=== PATIENT | female | born 2000 | race Hispanic/Latino ===

== ENCOUNTER 2024-01-14 22:19 | Emergency (ER) | payer BC, OTHER ==
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
--- NOTE | 2024-01-15 00:40 | EDPHYS ---
Physician Documentation [facility] Name: Bita Ortiz Age: 23 yrs Sex: Female : 2000 Arrival Date: 01/14/2024 Time: 22:19 Bed 10 Private MD: HARISH Physician Darren Soto HPI: 01/14 00:46 This 23 yrs old Female presents to ER via Ambulatory with complaints of sb4 Laceration To Finger. 00:47 The patient has a laceration related to: playing, occurred at home, and there are no sb4 complicating factors. The injury was accidental. The laceration(s) is(are) located on the palmar aspect of middle phalanx of right index finger and palmar aspect of proxima; phalanx of right index finger. Onset: The symptoms/episode began/occurred last night. Associated signs and symptoms: Pertinent negatives: deformity, dizziness, heavy bleeding, loss of consciousness, numbness distal to injury, suspected foreign body. The patient has not experienced similar symptoms in the past. The patient has not recently seen a physician. Historical: - Allergies: 01/13 22:40 No Known Allergies; kl - Home Meds: 22:40 None [Active]; kl - PMHx: 22:40 None; kl - PSHx: 22:40 None; kl - Immunization history:: Last tetanus immunization: unknown. - Infectious Disease History:: Denies. - Social history:: Smoking status: Patient denies any tobacco usage or history of. ROS: 01/14 00:47 Constitutional: Negative for fever, chills, and weight loss, sb4 Skin: Positive for laceration(s), of the palmar aspect of middle phalanx of right index finger, 00:47 All other systems are negative, sb4 Exam: 00:47 Constitutional: This is a well developed, well nourished patient who is awake, alert, sb4 and in no acute distress. Head/Face: Normocephalic, atraumatic. Eyes: Extra-ocular motions intact. Periorbital areas with no swelling, redness, or edema. ENT: Mucous membranes moist. 00:47 Skin: injury, laceration(s), the wound is approximately 2.5 cm(s), with a depth of .5 cm(s), of the palmar aspect of middle phalanx of right index finger, that can be described as no foreign body, linear, without bleeding, dried blood, Vital Signs: 01/13 22:37 BP 114 / 73; Pulse 63; Resp 16; Temp 98(TE); Pulse Ox 100% on R/A; Weight 70.31 kg (R); kl Height 5 ft. 0 in. ; Pain 0/10; 22:37 Body Mass Index 30.27 (70.31 kg, 152.4 cm) kl 22:37 Pain Scale: Adult kl MDM: 22:42 Patient medically screened. sb4 01/14 00:47 Data reviewed: vital signs, nurses notes, radiologic studies, and as a result, I will sb4 discharge patient. Counseling: I had a detailed discussion with the patient and/or guardian regarding the historical points, exam findings, and any diagnostic results supporting the discharge/admit diagnosis, radiology results, to return to the emergency department if symptoms worsen or persist or if there are any questions or concerns that arise at home. ED course: laceration is almost 24 hours old. already showing signs of healing. will clean, put on prophylactic antibiotics, and place finger in splint to allow to heal by secondary intention. 01/13 23:44 Order name: Hand Right 3 View XRAY sb4 01/13 23:44 Order name: Bianca. Order: betadine bath; Complete Time: 00:28 sb4 01/14 00:30 Order name: Finger Splint; Complete Time: 01:09 sb4 Administered Medications: 01:09 Drug: Cephalexin PO 500 mg PO once Route: PO; jb4 01:09 Follow up: Response: Medication administered at discharge. jb4 01:09 Drug: HYDROcodone-acetaminophen PO 5 mg-325 mg 1 tabs PO once Route: PO; jb4 01:09 Follow up: Response: Medication administered at discharge. jb4 Disposition Summary: 01/15/24 00:40 Discharge Ordered Notes: Location: Home sb4 Problem: new sb4 Symptoms: have improved sb4 Condition: Stable sb4 Diagnosis - Laceration without foreign body of right index finger without damage to nail sb4 Followup: sb4 - With: Emergency Department - When: As needed - Reason: Worsening of condition Discharge Instructions: - Discharge Summary Sheet sb4 - Nonsutured Laceration Care sb4 Forms: - Work release form sb4 - Antibiotic Education sb4 - Patient Portal Instructions sb4 - Leadership Thank You Letter sb4 Prescriptions: - Cephalexin 500 mg Oral Capsule - take 1 capsule ORAL route every 8 hours for 10 days; 30 capsule; Refills: 0, sb4 Product Selection Permitted Addendum: 01/21/2024 05:00 Co-signature as Attending Physician, Darren Soto MD I agree with the assessment and c pittman plan of care. Signatures: Dispatcher [employer] Patsy Cruz RN RN kl Anderson, Corey, MD MD cha Bryson, James, RN RN jb4 Leonarda Lane PA-C PATyrese sb4 Corrections: (The following items were deleted from the chart) 01/14 00:48 00:47 Skin: Positive for laceration(s), sb4 sb4
--- NOTE | 2024-01-15 00:40 | ER ---
Nurse's Notes [facility] Name: Bita Ortiz Age: 23 yrs Sex: Female : 2000 Arrival Date: 01/14/2024 Time: 22:19 Bed 10 Private MD: Diagnosis: Laceration without foreign body of right index finger without damage to nail Presentation: 01/13 22:37 Chief complaint: Patient states: fell and landed on glass table top cutting right index kl finger fulll ROM no active bleeding. Coronavirus screen: Vaccine status: Patient reports being unvaccinated. Ebola Screen: Patient negative for fever greater than or equal to 101.5 degrees Fahrenheit, and additional compatible Ebola Virus Disease symptoms. Complicating Factors: There are no complicating factors for this patient. Initial Sepsis Screen: Does the patient meet any 2 criteria? No. Patient's initial sepsis screen is negative. Risk Assessment: Do you want to hurt yourself or someone else? Patient reports no desire to harm self or others. Onset of symptoms was January 14, 2024. 22:37 Method Of Arrival: Ambulatory 22:37 Acuity: [place] 4 kl Triage Assessment: 22:41 General: Appears in no apparent distress. Behavior is calm, cooperative. Pain: Complains of pain in dorsal aspect of middle phalanx of right index finger and dorsal aspect of proximal phalanx of right index finger Pain currently is 0 out of 10 on a pain scale. at worst was 8 out of 10 on a pain scale. Aggravated by increased activity. Injury Description: Laceration sustained to palmar aspect of proxima; phalanx of right index finger is is bleeding no active bleeding noted. Historical: - Allergies: 22:40 No Known Allergies; kl - Home Meds: 22:40 None [Active]; kl - PMHx: 22:40 None; kl - PSHx: 22:40 None; kl - Immunization history:: Last tetanus immunization: unknown. - Infectious Disease History:: Denies. - Social history:: Smoking status: Patient denies any tobacco usage or history of. Screenin/29 01:17 [facility] ED Fall Risk Assessment (Adult) History of falling in the last 3 months, jb4 including since admission No falls in past 3 months (0 pts) Confusion or Disorientation No (0 pts) Intoxicated or Sedated No (0 pts) Impaired Gait No (0 pts) Mobility Assist Device Used No (0 pt) Altered Elimination No (0 pt) Score/Fall Risk Level 0 - 2 = Low Risk Oriented to surroundings, Maintained a safe environment. Abuse screen: Denies threats or abuse. Nutritional screening: No deficits noted. Tuberculosis screening: No symptoms or risk factors identified. Assessment: :17 Reassessment: Patient appears in no apparent distress at this time. Patient and/or jb4 family updated on plan of care and expected duration. Pain level reassessed. Patient is alert, oriented x 3, equal unlabored respirations, skin warm/dry/pink. Vital Signs: 01/13 22:37 BP 114 / 73; Pulse 63; Resp 16; Temp 98(TE); Pulse Ox 100% on R/A; Weight 70.31 kg (R); kl Height 5 ft. 0 in. ; Pain 0/10; 22:37 Body Mass Index 30.27 (70.31 kg, 152.4 cm) kl 22:37 Pain Scale: Adult kl ED Course: 22:23 Patient arrived in ED. jj6 22:40 Triage completed. kl 22:[address] PA-C is PHCP. sb4 22:41 Darren Soto MD is Attending Physician. sb4 01/14 00:09 Hand Right 3 View XRAY In Process Unspecified. EDMS 01:17 Patient has correct armband on for positive identification. Bed in low position. Call jb4 light in reach. Side rails up X 1. Provided Education on: discharge instructions.. 01:17 No provider procedures requiring assistance completed. Patient did not have IV access jb4 during this emergency room visit. finger splint applied. Administered Medications: 01:09 Drug: Cephalexin PO 500 mg PO once Route: PO; jb4 01:09 Follow up: Response: Medication administered at discharge. jb4 01:09 Drug: HYDROcodone-acetaminophen PO 5 mg-325 mg 1 tabs PO once Route: PO; jb4 01:09 Follow up: Response: Medication administered at discharge. jb4 Medication: :17 VIS not applicable for this client. jb4 Outcome: 00:40 Discharge ordered by . sb4 01:17 Discharged to home ambulatory, with family, jb4 01:17 Condition: stable 01:17 Discharge instructions given to patient, Instructed on discharge instructions, follow up and referral plans. medication usage, Demonstrated understanding of instructions, follow-up care, medications, Prescriptions given X 1, 01:18 Patient left the ED. jb4 Signatures: Dispatcher [employer] EDMS Patsy Drummond, RN Toan De Jesus RN RN jb4 Rosalva Arceo Sophia, DORCAS PATyrese sb4
[2024-01-15] MEDS ORDERED: HYDROCODONE/APAP 5/325 MG TAB ONE (00:58)
[2024-01-15] MEDS ORDERED: CEPHALEXIN 250 MG CAP ONE (00:58)
[2024-01-15 01:22] VITALS: BP 114/73; TEMP 98; O2SAT 100
--- NOTE | 2024-01-15 11:16 | RAD REPORT ---
EXAM DESCRIPTION: Hand Right 3 View CLINICAL HISTORY: PAIN COMPARISON: None TECHNIQUE: 2 views of the right hand. FINDINGS: Normal mineralization. No acute fracture or dislocation. Joint spaces are maintained. IMPRESSION: No acute osseous findings. Electronically signed by: Kavon Tafoya MD 01/15/2024 12:16 AM CDT RP Z9 Due to temporary technical issues with the PACS/Fluency reporting system, reports are being signed by the in house radiologist without review as a courtesy to ensure prompt reporting. The interpreting r adiologist is fully responsible for the content of the report.
== END 2024-01-15 01:18 | disposition home or self-care (01) ==
LOC: ER 22:19
DX: S61.210A Laceration without foreign body of right index finger without damage to nail, initial encounter (principal)
CPT/HCPCS: 99283